=== PATIENT | female | born 1945 | race Two or more races ===

== ENCOUNTER 2024-04-14 21:22 | Inpatient (IN) | payer OTHER, MEDICAID ==
[~2024-04-14] VITALS: Ht 160 cm; Wt 70.3 kg
[2024-04-14 21:25] VITALS: BP 138/78; PULSE 61; RESP 16; TEMP 97.4; O2SAT 100
[2024-04-14 22:48] LABS: BASOPHILS % (AUTO) 0.4 % (0.0-2.0); EOSINOPHILS % (AUTO) 0.1 % (0.0-4.0); HEMATOCRIT 40.8 % (36-48); HEMOGLOBIN 13.3 g/dL (12.0-16.0); LYMPHOCYTES # (AUTO) 2.5 K/uL (2.5-16.5); LYMPHOCYTES % (AUTO) 22.4 % (20.5-51.1); MEAN CORPUSCULAR HEMOGLOBIN 32 pg (27-31); MEAN CORPUSCULAR HGB CONC 33 g/dL (33-37); MEAN CORPUSCULAR VOLUME 97.6 fL (80-94); MONOCYTES # (AUTO) 1.2 K/uL (0.8-1.0); NEUTROPHILS # (AUTO) 7.4 K/uL (1.8-7.7); NEUTROPHILS % (AUTO) 66.1 % (42.2-75.2); PLATELET COUNT (AUTO) 239 K/uL (140-450); RED BLOOD CELL COUNT(AUTO) 4.18 MIL/uL (4.20-5.40); RED CELL DISTRIBUTION WIDTH 15.4 % (11.6-13.7); WHITE BLOOD COUNT (AUTO) 11.2 K/uL (4.8-10.8)
[2024-04-14 23:07] LABS: INR 1.02 (0.8-1.2); PARTIAL THROMBOPLASTIN TIME 23.4 secs (22-35.6); PROTHROMBIN TIME 10.7 secs (10.8-13.4)
[2024-04-14 23:11] LABS: ANION GAP 13.1 (8-16); CALCIUM 8.6 mg/dL (8.5-10.1); CARBON DIOXIDE 26.5 mmol/L (21-32); CHLORIDE 107 mmol/L (98-107); CREATININE 1.5 mg/dL (0.6-1.3); GLUCOSE 92 mg/dL (74-106); POTASSIUM 3.6 mmol/L (3.5-5.1); SODIUM SERUM 143 mmol/L (136-145); UREA NITROGEN, BLOOD 26 mg/dL (7-18)
[2024-04-14 23:12] LABS: ALANINE AMINOTRANSFERASE 29 U/L (12-78); ALBUMIN 3.1 g/dL (3.4-5.0); ALKALINE PHOSPHATASE 82 U/L (50-136); ASPARTATE AMINOTRANSFERASE 16 U/L (15-37); BILIRUBIN,DIRECT 0.2 mg/dL (0.0-0.3); MAGNESIUM 2.3 mg/dL (1.8-2.4); TOTAL BILIRUBIN 0.7 mg/dL (0.0-1.0); TOTAL PROTEIN, SERUM 5.9 g/dL (6.4-8.2)
[2024-04-15] VITALS (7 sets, daily range): BP systolic 94–112; BP diastolic 40–47; PULSE 50–95; RESP 17–18; TEMP 97.4–98.6; O2SAT 18–100
[2024-04-15] MEDS: ASPIRIN 81 MG TAB.CHEW PO ONE (01:44)
[2024-04-15] MEDS: HYDROcodone/APAP 5/325 MG 1 TAB TAB PO ONE (01:47)
[2024-04-15] MEDS ORDERED: ONDANSETRON 4 MG/2 ML VIAL IVP PRN (02:35)
[2024-04-15] MEDS ORDERED: MORPHINE SULFATE 2 MG/ML SYR IVP PRN (02:35)
[2024-04-15] MEDS ORDERED: HYDROcodone/APAP 5/325 MG 1 TAB TAB PO PRN (07:16)
[2024-04-15 07:28] LABS: ANION GAP 10.5 (8-16); CARBON DIOXIDE 26.9 mmol/L (21-32); CHLORIDE 108 mmol/L (98-107); CREATININE 1.3 mg/dL (0.6-1.3); GLUCOSE 85 mg/dL (74-106); POTASSIUM 3.4 mmol/L (3.5-5.1); SODIUM SERUM 142 mmol/L (136-145); UREA NITROGEN, BLOOD 11 mg/dL (7-18)
[2024-04-15 07:34] LABS: BASOPHILS % (AUTO) 0.4 % (0.0-2.0); EOSINOPHILS % (AUTO) 0.4 % (0.0-4.0); HEMATOCRIT 41.8 % (36-48); HEMOGLOBIN 13.7 g/dL (12.0-16.0); LYMPHOCYTES # (AUTO) 2.9 K/uL (2.5-16.5); LYMPHOCYTES % (AUTO) 23.9 % (20.5-51.1); MEAN CORPUSCULAR HEMOGLOBIN 32 pg (27-31); MEAN CORPUSCULAR HGB CONC 33 g/dL (33-37); MEAN CORPUSCULAR VOLUME 97.4 fL (80-94); MONOCYTES # (AUTO) 1.1 K/uL (0.8-1.0); NEUTROPHILS # (AUTO) 8.1 K/uL (1.8-7.7); NEUTROPHILS % (AUTO) 66.3 % (42.2-75.2); PLATELET COUNT (AUTO) 240 K/uL (140-450); RED BLOOD CELL COUNT(AUTO) 4.28 MIL/uL (4.20-5.40); RED CELL DISTRIBUTION WIDTH 15.3 % (11.6-13.7); WHITE BLOOD COUNT (AUTO) 12.2 K/uL (4.8-10.8)
[2024-04-15] MEDS: POTASSIUM CHLORIDE 10 MEQ TABER PO PRN (14:07)
[2024-04-15] MEDS ORDERED: MAGNESIUM OXIDE 400 MG TAB PO PRN (17:30)
[2024-04-15] MEDS ORDERED: POTASSIUM CHLORIDE 10 MEQ TABER PO PRN (17:30)
[2024-04-15 18:34] LABS: APPEARANCE,URINE CLEAR (CLEAR); BILIRUBIN,URINE NEGATIVE (NEGATIVE); BLOOD, URINE NEGATIVE (NEGATIVE); COLOR,URINE YELLOW (YELLOW); LEUKOCYTE ESTERASE ,URINE NEGATIVE (NEGATIVE); NITRITE, URINE NEGATIVE (NEGATIVE); PH,URINE 6.5 (5.0-9.0); PROTEIN,URINE NEGATIVE (NEGATIVE); UGLUCOSE 3+ (NEGATIVE)
[2024-04-16] VITALS (8 sets, daily range): BP systolic 98–117; BP diastolic 44–56; PULSE 51–61; RESP 18; TEMP 96.9–97.8; O2SAT 96–99
[2024-04-16] MEDS ORDERED: PRED5DRO LEFT EYE (02:59)
[2024-04-16] MEDS ORDERED: KETO5SOL LEFT EYE (02:59)
[2024-04-16] MEDS ORDERED: TOPI200T PO (02:59)
[2024-04-16] MEDS ORDERED: LOSA-272 PO (02:59)
[2024-04-16] MEDS ORDERED: DULO60EC1 PO (02:59)
[2024-04-16] MEDS ORDERED: METO25TA PO (02:59)
[2024-04-16] MEDS ORDERED: EMPA25TA PO (02:59)
[2024-04-16] MEDS ORDERED: ATOR40TA PO (02:59)
[2024-04-16] MEDS ORDERED: AMIO200T62 PO (02:59)
[2024-04-16] MEDS ORDERED: DEXA5SUS LEFT EYE (02:59)
[2024-04-16] MEDS ORDERED: PRED15SO54 PO (02:59)
[2024-04-16 05:44] LABS: BASOPHILS # (AUTO) 0.1 K/uL (0.00-0.22); BASOPHILS % (AUTO) 0.6 % (0.0-2.0); EOSINOPHILS # (AUTO) 0.1 K/uL (0-0.4); EOSINOPHILS % (AUTO) 1.2 % (0.0-4.0); HEMATOCRIT 40.7 % (36-48); HEMOGLOBIN 13.3 g/dL (12.0-16.0); LYMPHOCYTES # (AUTO) 2.4 K/uL (2.5-16.5); LYMPHOCYTES % (AUTO) 25.1 % (20.5-51.1); MEAN CORPUSCULAR HEMOGLOBIN 32 pg (27-31); MEAN CORPUSCULAR HGB CONC 33 g/dL (33-37); MEAN CORPUSCULAR VOLUME 97.9 fL (80-94); MONOCYTES % (AUTO) 10.8 % (1.7-9.3); NEUTROPHILS # (AUTO) 5.8 K/uL (1.8-7.7); NEUTROPHILS % (AUTO) 62.3 % (42.2-75.2); PLATELET COUNT (AUTO) 234 K/uL (140-450); RED BLOOD CELL COUNT(AUTO) 4.15 MIL/uL (4.20-5.40); RED CELL DISTRIBUTION WIDTH 15.1 % (11.6-13.7); WHITE BLOOD COUNT (AUTO) 9.4 K/uL (4.8-10.8)
[2024-04-16 06:17] LABS: ALANINE AMINOTRANSFERASE 30 U/L (12-78); ALBUMIN 2.7 g/dL (3.4-5.0); ALKALINE PHOSPHATASE 66 U/L (50-136); ASPARTATE AMINOTRANSFERASE 19 U/L (15-37); CALCIUM 8.6 mg/dL (8.5-10.1); CARBON DIOXIDE 25.2 mmol/L (21-32); CHLORIDE 108 mmol/L (98-107); CREATININE 1.3 mg/dL (0.6-1.3); GLUCOSE 91 mg/dL (74-106); MAGNESIUM 2.1 mg/dL (1.8-2.4); PHOSPHORUS 4.6 mg/dL (2.5-4.9); POTASSIUM 4.2 mmol/L (3.5-5.1); SODIUM SERUM 142 mmol/L (136-145); TOTAL BILIRUBIN 0.7 mg/dL (0.0-1.0); TOTAL PROTEIN, SERUM 5.6 g/dL (6.4-8.2); UREA NITROGEN, BLOOD 23 mg/dL (7-18)
[2024-04-16] MEDS: PANTOPRAZOLE 40 MG TABEC PO SCH (08:39)
[2024-04-16] MEDS: ASPIRIN 81 MG TAB.CHEW PO SCH (08:39)
[2024-04-16] MEDS: ATORVASTATIN 20 MG TAB PO SCH (08:39)
[2024-04-16] MEDS: NAPROXEN 500 MG TAB PO SCH (08:40)
[2024-04-16] MEDS: LOSARTAN 25 MG TAB PO SCH (08:42)
[2024-04-16] MEDS: carvediloL 6.25 MG TAB PO SCH (09:00)
[2024-04-16] MEDS ORDERED: SULF-59 PO (12:47)
[2024-04-16] MEDS ORDERED: LOSA25TA32 PO (12:57)
[2024-04-16] MEDS ORDERED: PREDNISOLONE AC 1% OP SCH ×2 (13:00→13:52)
[2024-04-16] MEDS ORDERED: DEXAMETH OP SCH ×2 (13:00→13:56)
[2024-04-16] MEDS ORDERED: [UNRECOGNIZED DRUG - OTHER] LEFT EYE SCH (13:00)
[2024-04-16] MEDS ORDERED: TOBRAMYCIN OP SCH ×2 (13:00→13:56)
[2024-04-16] MEDS ORDERED: KETOROLAC 0.5% OP SCH ×2 (13:00→13:54)
[2024-04-16] MEDS ORDERED: [UNRECOGNIZED DRUG - OTHER] OP SCH ×2 (13:00→13:54)
[2024-04-16] MEDS ORDERED: KETOROLAC 0.5% OP 3 ML BTL LEFT EYE SCH (13:00)
[2024-04-16] MEDS ORDERED: TOBRAMYCIN LEFT EYE SCH (13:00)
[2024-04-16] MEDS ORDERED: PREDNISOLONE ACETATE LEFT EYE SCH (13:00)
[2024-04-17 10:07] LABS: FOLIC ACID 5.1 ng/mL (>3.0)
[2024-04-17] MEDS ORDERED: PATIENTS OWN EENT OP SCH ×3 (13:00)
== END 2024-04-16 19:45 | disposition home or self-care (01) | DRG 206 ==
LOC: MED 21:22 → MTU 04-15 02:35
PROVIDERS: ADMIT Student in an Organized Health Care Education/Training Program; ATTEND Student in an Organized Health Care Education/Training Program
DX: M94.0 Chondrocostal junction syndrome [Tietze] (principal); E44.1 Mild protein-calorie malnutrition; D72.829 Elevated white blood cell count, unspecified; E66.9 Obesity, unspecified; I25.10 Atherosclerotic heart disease of native coronary artery without angina pectoris; I11.9 Hypertensive heart disease without heart failure; E78.00 Pure hypercholesterolemia, unspecified; I25.2 Old myocardial infarction; Z68.27 Body mass index [BMI] 27.0-27.9, adult
CPT/HCPCS: 36415; 70450; 71045; 76604; 80048; 80053; 80076; 81003; 82607; 82746; 83735; 83880; 84100; 84443; 84484; 85025; 85379; 85610; 85730; 87040; 87081; 87086; 93005; 97116; 97163-GP; 99285; J0696; J7060; Q0092